=== PATIENT | male | born 1980 | race Caucasian/White ===

== ENCOUNTER 2019-12-17 16:43 | Emergency (ER) | payer MEDICAID, SELFPAY ==
[~2019-12-17] VITALS: Ht 170.2 cm; Wt 59.0 kg
[2019-12-17 16:49] VITALS: BP_SYST 129
--- NOTE | 2019-12-17 16:52 | NUR ---
Patient to ER bed 03 to gown for evaluation. Side rails up.
--- NOTE | 2019-12-17 17:03 | NUR ---
Pt came for fatigue and dizziness starting today pt is anxious with state of COVID and wanted to be checked out [facility]
--- NOTE | 2019-12-17 17:20 | NUR ---
ER at bedside examining patient.
[2019-12-17 17:51] VITALS: BP_SYST 129
--- NOTE | 2019-12-17 17:52 | NUR ---
Patient given written and verbal discharge instructions and verbalizes understanding. ER MD discussed with patient the results and treatment provided. Patient in stable condition. ID arm band removed. Patient educated on pain management and to follow up with PMD. Pain Scale 0/10. Opportunity for questions provided and answered. Medication side effect fact sheet provided.
== END 2019-12-17 17:52 | disposition home or self-care (01) ==
LOC: SED 16:43
DX: R42 Dizziness and giddiness (principal); F17.200 Nicotine dependence, unspecified, uncomplicated; Z20.828 Contact with and (suspected) exposure to other viral communicable diseases; Z71.6 Tobacco abuse counseling
CPT/HCPCS: 99283; U0003